=== PATIENT | female | born 1980 | race Two or more races ===

== ENCOUNTER 2018-12-14 06:48 | Inpatient (IN) | payer OTHER ==
[~2018-12-14] VITALS: Ht 162.6 cm; Wt 89.8 kg
[2018-12-14] MEDS ORDERED: PRENATAL TABLE1 EAC1 PO (08:20)
== END 2018-12-16 11:56 | disposition home or self-care (01) | DRG 807 ==
LOC: LDR 06:48 → OB/GYN 20:29
PROVIDERS: ADMIT Obstetrics & Gynecology
PROC: 10E0XZZ Delivery of Products of Conception, External Approach (ICD-10-PCS; principal; 2018-12-14)
PROC: 0HQ9XZZ Repair Perineum Skin, External Approach (ICD-10-PCS; 2018-12-14)
PROC: 3E0P7VZ Introduction of Hormone into Female Reproductive, Via Natural or Artificial Opening (ICD-10-PCS; 2018-12-14)
PROC: 3E033VJ Introduction of Other Hormone into Peripheral Vein, Percutaneous Approach (ICD-10-PCS; 2018-12-14)
PROC: 4A1HXCZ Monitoring of Products of Conception, Cardiac Rate, External Approach (ICD-10-PCS; 2018-12-14)
DX: O70.0 First degree perineal laceration during delivery (principal); Z37.0 Single live birth; Z3A.39 39 weeks gestation of pregnancy; O24.420 Gestational diabetes mellitus in childbirth, diet controlled